=== PATIENT | female | born 1965 | race Caucasian/White ===

== ENCOUNTER 2022-07-21 21:50 | Emergency (ER) | payer MEDICAID ==
[~2022-07-21] VITALS: Ht 154.9 cm; Wt 49.9 kg
[2022-07-21] MEDS ORDERED: TDAP [DIPH/PERTUSSIS/TET] 0.5 ML VIAL IM ONE (22:21)
[2022-07-21] MEDS ORDERED: ACETAMINOPHEN 325 MG TABLET ONE (22:21)
[2022-07-21] MEDS: TDAP [DIPH/PERTUSSIS/TET] 0.5 ML VIAL IM ONE (22:25)
[2022-07-21] MEDS: ACETAMINOPHEN 325 MG TABLET PO ONE (22:25)
[2022-07-21] MEDS ORDERED: LIDOCAINE 1%-EPI 1:100,000 20 ML VIAL ONE (23:33)
[2022-07-22] MEDS ORDERED: IBUP-1953 PO (01:06)
[2022-07-22 03:01] VITALS: BP 161/90
== END 2022-07-22 02:30 | disposition home or self-care (01) ==
LOC: ER 21:58
DX: S46.222A Laceration of muscle, fascia and tendon of other parts of biceps, left arm, initial encounter (principal); S13.4XXA Sprain of ligaments of cervical spine, initial encounter; S00.01XA Abrasion of scalp, initial encounter; Z88.0 Allergy status to penicillin; Z88.8 Allergy status to other drugs, medicaments and biological substances; Y08.89XA Assault by other specified means, initial encounter; Y93.89 Activity, other specified; Y92.89 Other specified places as the place of occurrence of the external cause; Y99.8 Other external cause status
CPT/HCPCS: 99284; 12034; 72125; 90471; 90715; 70450; J3490

== ENCOUNTER 2022-08-01 20:13 | Emergency (ER) | payer MEDICAID ==
[~2022-08-01] VITALS: Ht 157.5 cm; Wt 43.5 kg
[~2022-08-01 20:13] MED LIST: IBUP-1953 PO
[2022-08-01 22:05] VITALS: BP 190/108
[2022-08-01] MEDS ORDERED: DOXY100C2 PO ×2 (22:38→22:50)
[2022-08-01] MEDS ORDERED: IBUP-1953 PO (22:50)
[2022-08-01] MEDS ORDERED: DOXYCYCLINE HYCLATE (100 MG) 100 MG TABLET ONE (22:58)
[2022-08-01] MEDS ORDERED: DOXYCYCLINE HYCLATE (100 MG) 100 MG TABLET PO ONE (23:00)
--- NOTE | 2022-08-01 23:00 | NUR ---
Patient discharged to home in stable condition. Written and verbal after care instructions given. Patient verbalizes understanding of instruction. Pt ambulatory with a steady gait
== END 2022-08-01 23:01 | disposition home or self-care (01) ==
LOC: ER 20:17
DX: S41.112D Laceration without foreign body of left upper arm, subsequent encounter (principal); L08.89 Other specified local infections of the skin and subcutaneous tissue; I10 Essential (primary) hypertension; Z88.0 Allergy status to penicillin; Z88.8 Allergy status to other drugs, medicaments and biological substances; Y04.2XXA Assault by strike against or bumped into by another person, initial encounter; Y93.89 Activity, other specified; Y92.89 Other specified places as the place of occurrence of the external cause; Y99.8 Other external cause status